=== PATIENT | female | born 1995 | race Caucasian/White ===

== ENCOUNTER 2018-10-31 21:30 | Emergency (ER) | payer SELFPAY ==
[~2018-10-31] VITALS: Ht 160 cm; Wt 54.4 kg
[2018-10-31 21:35] VITALS: Ht 160 cm; Wt 54.4 kg
[2018-11-01 01:30] LABS: microscopic required? YES; urine erythrocyte NEGATIVE (NEGATIVE)
[2018-11-01 04:34] VITALS: BP 108/77
== END 2018-11-01 04:34 | disposition home or self-care (01) ==
LOC: ED 21:30
PROVIDERS: Emergency Medicine
DX: N12 Tubulo-interstitial nephritis, not specified as acute or chronic (principal); K59.00 Constipation, unspecified; H57.11 Ocular pain, right eye; Z88.1 Allergy status to other antibiotic agents
CPT/HCPCS: 36415; J1885; Q0162